=== PATIENT | female | born 1960 | race Caucasian/White ===

== ENCOUNTER 2020-11-25 12:14 | Emergency (ER) | payer OTHER ==
[~2020-11-25] VITALS: Ht 157.5 cm; Wt 90.7 kg
[2020-11-25 14:23] VITALS: BP 1368/73
== END 2020-11-25 14:23 | disposition home or self-care (01) ==
LOC: ED 12:14
DX: C49.22 Malignant neoplasm of connective and soft tissue of left lower limb, including hip (principal); I10 Essential (primary) hypertension; Z98.890 Other specified postprocedural states; Z88.2 Allergy status to sulfonamides
CPT/HCPCS: J1170; Q0162

== ENCOUNTER 2020-12-04 10:59 | Emergency (ER) | payer OTHER ==
[~2020-12-04] VITALS: Ht 157.5 cm; Wt 87.2 kg
[2020-12-04 11:22] VITALS: Ht 157.5 cm; Wt 87.2 kg
[2020-12-04 15:56] VITALS: BP 135/91
== END 2020-12-04 15:56 | disposition home or self-care (01) ==
LOC: ED 10:59
DX: C49.22 Malignant neoplasm of connective and soft tissue of left lower limb, including hip (principal)
CPT/HCPCS: J1170